=== PATIENT | female | born 1930 | race Hispanic/Latino ===

== ENCOUNTER 2016-07-05 17:40 | Emergency (ER) | payer MEDICARE ==
[2016-07-05 18:23] LABS: RBC URINE 2 /hpf (0-3); URINE BILIRUBIN NEGATIVE (NEGATIVE); URINE BLOOD NEGATIVE (NEGATIVE); URINE COLOR Yellow (YELLOW); URINE GLUCOSE (UA) NORMAL (Normal); URINE KETONE TRACE mg/dL (NEGATIVE); URINE LEUKOCYTE ESTERASE TRACE Leu/uL (Negative); URINE PROTEIN 1+ mg/dL (NEGATIVE); URINE UROBILINOGEN NORMAL mg/dL (0.2-1.0); WBC URINE 14 /hpf (0-5)
[2016-07-05 19:38] LABS: BASO # 0.1 K/uL (0.0-0.2); BASO % 0.8 % (0.0-2.0); EOS # 0.1 K/uL (0.0-0.7); EOS % 0.5 % (0.0-4.0); HEMATOCRIT 38.1 % (34.0-47.0); LYMPH # 1.6 K/uL (1.0-4.3); LYMPH % 15.1 % (20.0-40.0); MEAN CELL VOLUME 90.1 fL (81.0-99.0); MEAN CORPUSCULAR HGB CONC 33.3 g/dL (33.0-37.0); MONO # 0.8 K/uL (0.0-0.8); MONO % 7.4 % (0.0-10.0); NRBC % 0.1 % (0.0-2.0); RED CELL DISTRIBUTION WIDTH 13.2 % (11.5-14.5); WHITE BLOOD COUNT 10.9 K/uL (4.8-10.8)
[2016-07-05 19:48] LABS: CHLORIDE 103 mmol/L (98-107); POTASSIUM 3.6 mmol/L (3.6-5.2); SODIUM 142 mmol/L (132-148)
[2016-07-05 19:50] LABS: GFR AFRICAN-AMERICAN > 60
[2016-07-05 19:51] LABS: ALB/GLOB RATIO 1.3 (1.0-2.1); ALKALINE PHOSPHATASE 36 U/L (38-126); ALT/SGPT 10 U/L (9-52); AST/SGOT 25 U/L (14-36); BILIRUBIN,TOTAL 0.7 mg/dL (0.2-1.3); BLOOD UREA NITROGEN 23 mg/dL (7-17); CALCIUM 8.7 mg/dl (8.6-10.4); CARBON DIOXIDE 28 mmol/L (22-30); GLUCOSE,RANDOM 106 mg/dL (65-105); TOTAL PROTEIN 6.7 g/dL (6.3-8.3)
[2016-07-05] MEDS ORDERED: Iodixanol 320 MG/ML 100 ML BOTTLE IV ONE (20:15)
--- NOTE | 2016-07-05 21:10 | C.PDOC ---
History Of Present Illness A 86 year old female presents to the ER c/o epigastric discomfort for the past half day. Patient was seen by Dr. Philippe for reported nausea and vomiting and was given pepcid. Patient had sat in the office for an hour and felt relief. Patient is now sent to the ER for further evaluation. Patient denies SOB, fever , chills, diarrhea, trauma, or any other complaints. Time Seen by Provider: 07/05/16 18:50 Chief Complaint (Nursing): Abdominal Pain Past Medical History Vital Signs: Last Vital Signs Temp 98.1 F 07/05/16 22:40 Pulse 90 07/05/16 22:40 Resp 20 07/05/16 22:40 BP 150/74 07/05/16 22:40 Pulse Ox 97 07/06/16 00:27 - Medical History PMH: HTN, Hypercholesterolemia, Hypothyroidism Family History: States: No Known Family Hx - Social History Hx Alcohol Use: No Hx Substance Use: No ED Course And Treatment - Laboratory Results Result Diagrams: 07/05/16 19:30 07/05/16 19:30 Lab Interpretation: Abnormal (mild leukocytosis, UA 14 WBC's, trop neg.) ECG: Interpreted By Me ECG Rhythm: Sinus Rhythm ECG Interpretation: Normal Rate From EC O2 Sat by Pulse Oximetry: 97 Pulse Ox Interpretation: Normal - CT Scan/US CT Abd/Pel Other Rad Studies (CT/US): Interpreted By Me, Read By Radiologist CT/US Interpretation: EXAM: CT Abdomen and Pelvis With Intravenous Contrast. CLINICAL HISTORY: 86 years old, female; Pain; Abdominal pain; Epigastric; Additional info: Epigastric abd pain. ? Peptic. ulcer. TECHNIQUE: Axial computed tomography images of the abdomen and pelvis with intravenous contrast. This CT. exam was performed using one or more of the following dose reduction techniques: automated. exposure control, adjustment of the mA and/or kV according to patient size, and/or use of iterative. reconstruction technique. Coronal and sagittal reformatted images were created and reviewed. CONTRAST: 100 mL of visipaque 320 administered intravenously. COMPARISON: CR - HIP LEFT 2 VIEW 01/12/2015 3:30:39 PM. FINDINGS: Artifacts: Motion artifact does moderately limit the sensitivity of this examination. Lower thorax: There is bilateral linear atelectasis or scarring present in both lung bases. ABDOMEN: Liver: There are to irregular hepatic hypodensity, consistent in appearance with a benign. hemangioma, largest measuring 1.7 cm. There is a diffuse mild decrease in hepatic parenchymal. density, consistent with mild fatty infiltration. Gallbladder and bile ducts: Unremarkable. No calcified stones. No ductal dilation. No significant. wall thickening. Pancreas: Punctate pancreatic calcifications indicating chronic pancreatitis. Associated pancreatic. atrophy without significant ductal dilatation. Spleen: The spleen is normal. Adrenals: Unremarkable. No mass. Kidneys and ureters: There are multiple simple renal cysts, largest located in the upper pole left. kidney, 2.8 cm. There are numerous bilateral renal hilus calcific foci likely vascular in etiology. Symmetric renal enhancement is present. No suspicious renal mass, perinephric collection, or. hydronephrosis. The ureters are normal. Stomach and bowel: Moderate diverticulosis is present in the sigmoid and descending colon. No. obstruction. No mucosal thickening. Appendix: The appendix is in a retrocecal location. PELVIS: Bladder: The bladder is decompressed but otherwise normal. Reproductive: Unremarkable as visualized. ABDOMEN and PELVIS : Intraperitoneal space: Unremarkable. No free air. No significant fluid collection. Bones/joints: The spine demonstrates moderate degenerative changes at multiple levels. There are. multiple vertebral body endplate concavities, consistent with chronic insufficiency fractures. Secondary to combination of facet disease, ligamentum flavum thickening, and degenerative disc. disease, there is markedly severe spinal stenosis seen at L4-L5. No dislocation. Soft tissues: Unremarkable. Vasculature: Dilated venous structures in the left hemipelvis. Left ovary is not seen, right ovary. contains punctate calcifications measuring 2.9 cm.The aorta demonstrates severe atherosclerotic. calcification and ectasia. Lymph nodes: Unremarkable. No enlarged lymph nodes. IMPRESSION: 2 hepatic hemangiomas are seen. Mild hepatic steatosis is present. Bilateral renal cysts. These appear simple. Marked atherosclerotic disease aorta. Normal appendix is seen. Marked diverticulosis without diverticulitis. Multiple slightly dilated venous structures in the pelvis which could be associated with congestive. venous syndrome. Reevaluation Time: 22:33 Reassessment Condition: Improved (sleeping) - Physician Consult Information Outcome Of Conversation: d/w Dr. Philippe in ED @ 8P- ok to d/c home with normal w/u. Medical Decision Making Medical Decision Making: constipation initially concerned for but after w/u now LOW susp of AAA, ACS after w/u. Disposition Doctor Will See Patient In The: Office Counseled Patient/Family Regarding: Studies Performed, Diagnosis - Disposition Referrals: Beata Philippe MD [Staff Provider] - Disposition: HOME/ ROUTINE Disposition Time: 22:34 Condition: GOOD Additional Instructions: drink a bottle of Mag Citrate now and re-evaluate your abdominal discomfort after using the bathroom 2-3 times Continue Colace 100 mg (stool softner) twice a day to help PREVENT constipation. your lab tests and CT of the Abd/Pelvis are NORMAL, except for a large amount of stool in your colon. Follow-up with Dr. Philippe as instructed. Instructions: Constipation (ED), Acute Nausea and Vomiting (ED) - Clinical Impression Clinical Impression: Constipation, Abdominal pain, Vomiting
[2016-07-05 23:04] VITALS: BP 150/74; PULSE 90; RESP 20; TEMP 98.1
[2016-07-06 00:27] VITALS: O2SAT 97
--- NOTE | 2016-07-06 10:47 | CT ---
PROCEDURE: CT Abdomen and Pelvis with contrast HISTORY: epigastric abd pain. ? peptic ulcer COMPARISON: None available TECHNIQUE: Contrast dose: 100 cc Visipaque 320 Radiation dose: Total exam DLP = 309.99 mGy-cm. This CT exam was performed using one or more of the following dose reduction techniques: Automated exposure control, adjustment of the mA and/or kV according to patient size, and/or use of iterative reconstruction technique. FINDINGS: Motion artifact. LOWER THORAX: No visible consolidation, pleural effusion, or pneumothorax. Small hiatal hernia. LIVER: Hypoattenuation of the liver compatible with hepatic steatosis. There are 2 irregular hypodensities measuring up to approximately 1.7 cm, indeterminate. GALLBLADDER AND BILE DUCTS: Unremarkable. PANCREAS: Pancreatic calcifications suggest chronic pancreatitis. Mild pancreatic atrophy. SPLEEN: Unremarkable. ADRENALS: Unremarkable. KIDNEYS AND URETERS: The kidneys enhance symmetrically. No hydronephrosis or obstructing calculus. Multiple simple appearing renal cysts, largest within the left upper pole kidney measuring approximately 2.8 cm. VASCULATURE: Severe dense vascular calcifications of an ectatic aorta. No aortic aneurysm. BOWEL: Stomach is nondistended. Lack of oral contrast limits evaluation for bowel pathology. Bowel loops appear within normal limits of caliber without evidence of obstruction. Moderate diverticulosis involving the left/sigmoid colon. APPENDIX: Retrocecal appendix appears within normal limits of caliber. No secondary signs of acute appendicitis. PERITONEUM: No significant free fluid. No definite free air. LYMPH NODES: No bulky adenopathy evident. BLADDER: Decompressed urinary bladder precludes adequate evaluation. REPRODUCTIVE: The uterus is present. Prominent pelvic vessels suspicious for pelvic congestion syndrome. Suspect 2.5 cm right exophytic uterine fibroid versus calcifications within the right ovary. BONES: Multilevel degenerative changes. Mild loss of height of L3 vertebral body may reflect mild compression fracture, age indeterminate. Diffuse osseous demineralization. Marked spinal stenosis at L4-L5. OTHER FINDINGS: None. IMPRESSION: Hepatic steatosis. There are 2 irregular hepatic hypodensities measuring up to approximately 1.7 cm, indeterminate. Pancreatic calcifications suggest chronic pancreatitis. Mild pancreatic atrophy. Multiple simple appearing renal cysts, largest within the left upper pole kidney measuring approximately 2.8 cm. Moderate diverticulosis involving the left/sigmoid colon. Prominent pelvic vessels suspicious for pelvic congestion syndrome. Suspect 2.5 cm right exophytic uterine fibroid versus calcifications within the right ovary. Recommend outpatient pelvic ultrasound for further evaluation. Mild loss of height of L3 vertebral body may reflect mild compression fracture, age indeterminate. Marked spinal stenosis at L4-L5. Additional findings as above. Preliminary impression was provided by virtual radiologic. Study has been marked for PA review.
--- NOTE | 2016-07-06 10:59 | CARD ---
APPROVED REPORT EKG Measurement Heart [id number] <Conclusion> Normal sinus rhythm Normal ECG
== END 2016-07-05 22:40 | disposition home or self-care (01) ==
LOC: C.ER 17:40
DX: K59.00 Constipation, unspecified (principal); R10.13 Epigastric pain; R11.10 Vomiting, unspecified
CPT/HCPCS: 74177; 80053; 81001; 83690; 84484; 85025; 93005; 96374; 99285; Q9967